=== PATIENT | male | born 1975 | race Caucasian/White ===

== ENCOUNTER 2020-06-16 00:36 | Inpatient (IN) | payer BC ==
[2020-06-16] VITALS (8 sets, daily range): BP systolic 126–151; BP diastolic 80–95
[~2020-06-16] VITALS: Ht 185.4 cm; Wt 151.5 kg
[2020-06-16 01:29] LABS: HEMATOCRIT. 37.1 % (42.0-52.0); HEMOGLOBIN. 12.1 g/dL (14.0-18.0); LYMPHOCYTES % 17.7 % (20.0-50.0); MEAN CORPUSCULAR HEMOGLOBIN 30.6 pg (28.0-32.0); MEAN CORPUSCULAR VOLUME 93.5 fL (80.0-94.0); MEAN PLATELET VOLUME 9.9 fl (7.4-10.4); MONOCYTES % 9.1 % (2.0-8.0); NEUTROPHILS % 71.2 % (40.0-76.0); PLATELET 183 x1000/uL (130-400); RED BLOOD CELL COUNT 3.96 mill/uL (4.7-6.1); RED CELL DISTRIBUTION WIDTH 18.7 % (11.6-14.6)
[2020-06-16 01:30] LABS: CHLORIDE 98 mEq/L (98-107)
[2020-06-16] MEDS ORDERED: ACETAMINOPHEN 325MG TABLET PO PRN (11:00)
[2020-06-16] MEDS ORDERED: SUMATRIPTAN SUCCINATE 25MG TABLET PO PRN (11:00)
[2020-06-16] MEDS ORDERED: SENNOSIDES/DOCUSATE SOD 8.6/50MG TABLET PO PRN (11:00)
[2020-06-16] MEDS ORDERED: DOCUSATE SODIUM 250MG CAPSULE PO PRN (11:00)
[2020-06-16] MEDS ORDERED: HYDROCODONE/ACETAMINOPHEN 5/325MG TABLET PO PRN ×2 (11:00→17:00)
[2020-06-16] MEDS ORDERED: TEMAZEPAM 15MG CAPSULE PO PRN ×2 (11:00→21:00)
[2020-06-16] MEDS ORDERED: DEXTROSE 50% WATER 50ML SYRINGE IV PRN (11:45)
[2020-06-16] MEDS ORDERED: ENOXAPARIN 150MG/ML SYR SUBCUT SCH (12:00)
[2020-06-16] MEDS: INSULIN LISPRO 100 UNITS/ML SUBCUT SCH ×5 (12:30→21:00)
[2020-06-16] MEDS ORDERED: CYCLOBENZAPRINE 10MG TABLET PO SCH (13:00)
[2020-06-16] MEDS: METHIMAZOLE 5MG TABLET PO SCH ×2 (13:24→21:34)
[2020-06-16] MEDS: BLOOD SUGAR DIAGNOSTIC STRIP TEST SCH ×3 (13:25→21:00)
[2020-06-16] MEDS: METOCLOPRAMIDE HCL 5MG TABLET PO SCH ×3 (13:25→23:07)
[2020-06-16] MEDS ORDERED: CYCLOBENZAPRINE 10MG TABLET PO PRN (13:30)
[2020-06-16] MEDS ORDERED: ALPRAZOLAM 0.25 MG TABLET PO SCH (14:00)
[2020-06-16] MEDS ORDERED: ALPRAZOLAM 0.25 MG TABLET PO PRN (14:00)
[2020-06-16] MEDS: TIMOLOL MALEATE 0.25% OPHTH DROPS 5ML EACHEYE SCH (17:00)
[2020-06-16] MEDS: LOSARTAN POTASSIUM 25 MG TABLET PO SCH (18:44)
[2020-06-16] MEDS: DIVALPROEX SODIUM 250MG DR TABLET PO SCH (18:44)
[2020-06-16] MEDS ORDERED: TIMO5DRO27 BOTHEYE (20:24)
[2020-06-16] MEDS ORDERED: DIVA-73 MT (20:24)
[2020-06-16] MEDS ORDERED: ALPR-392 PO (20:24)
[2020-06-16] MEDS ORDERED: METO5TAB86 PO (20:24)
[2020-06-16] MEDS ORDERED: SENN-257 MT (20:24)
[2020-06-16] MEDS ORDERED: FOLI-43 MT (20:24)
[2020-06-16] MEDS ORDERED: ATOR-2 PO (20:24)
[2020-06-16] MEDS ORDERED: CYCL25PO21 MT (20:24)
[2020-06-16] MEDS ORDERED: DOCU250C69 MT (20:24)
[2020-06-16] MEDS ORDERED: CYAN50003 PO (20:24)
[2020-06-16] MEDS ORDERED: HYDR-4346 MT (20:24)
[2020-06-16] MEDS: ATORVASTATIN CALCIUM 40MG TABLET PO SCH (21:34)
[2020-06-16] MEDS: ALPRAZOLAM 0.25 MG TABLET PO PRN (22:51)
[2020-06-17] VITALS (13 sets, daily range): BP systolic 101–138; BP diastolic 65–89
[2020-06-17 05:36] LABS: INR 1.2; PROTHROMBIN TIME 12.6 sec (9.6-11.0)
[2020-06-17] MEDS: METOCLOPRAMIDE HCL 5MG TABLET PO SCH ×4 (06:09→23:59)
[2020-06-17] MEDS: METHIMAZOLE 5MG TABLET PO SCH ×3 (06:09→21:59)
[2020-06-17 06:23] LABS: VITAMIN B12 SERUM 510 pg/mL (211-911)
[2020-06-17] MEDS: BLOOD SUGAR DIAGNOSTIC STRIP TEST SCH ×4 (07:30→20:26)
[2020-06-17] MEDS: INSULIN LISPRO 100 UNITS/ML SUBCUT SCH ×7 (08:00→20:26)
[2020-06-17] MEDS: LOSARTAN POTASSIUM 25 MG TABLET PO SCH ×2 (09:00→17:00)
[2020-06-17] MEDS: TIMOLOL MALEATE 0.25% OPHTH DROPS 5ML EACHEYE SCH ×2 (09:05→17:11)
[2020-06-17] MEDS: FOLIC ACID 1MG TABLET PO SCH (09:06)
[2020-06-17] MEDS: CYCLOBENZAPRINE 10MG TABLET PO PRN ×2 (09:07→21:59)
[2020-06-17] MEDS: CYANOCOBALAMIN 1000MCG/ML VIAL IM SCH (09:07)
[2020-06-17] MEDS: ALPRAZOLAM 0.25 MG TABLET PO PRN (09:10)
[2020-06-17] MEDS: ENOXAPARIN 40MG/0.4ML SYR SUBCUT SCH ×2 (09:19→22:01)
[2020-06-17] MEDS: DIVALPROEX SODIUM 250MG DR TABLET PO SCH ×2 (09:19→17:11)
[2020-06-17] MEDS: SUMATRIPTAN SUCCINATE 25MG TABLET PO PRN (12:41)
[2020-06-17] MEDS: ATORVASTATIN CALCIUM 40MG TABLET PO SCH (21:59)
[2020-06-18] VITALS (10 sets, daily range): BP systolic 109–144; BP diastolic 63–97
[2020-06-18] MEDS: ALPRAZOLAM 0.25 MG TABLET PO PRN ×2 (00:43→08:59)
[2020-06-18] MEDS: METOCLOPRAMIDE HCL 5MG TABLET PO SCH ×2 (06:00→12:00)
[2020-06-18] MEDS: METHIMAZOLE 5MG TABLET PO SCH (06:00)
[2020-06-18] MEDS: BLOOD SUGAR DIAGNOSTIC STRIP TEST SCH ×2 (07:30→13:04)
[2020-06-18] MEDS: INSULIN LISPRO 100 UNITS/ML SUBCUT SCH ×4 (08:00→13:00)
[2020-06-18] MEDS: SUMATRIPTAN SUCCINATE 25MG TABLET PO PRN (08:58)
[2020-06-18] MEDS: TIMOLOL MALEATE 0.25% OPHTH DROPS 5ML EACHEYE SCH (08:58)
[2020-06-18] MEDS: LOSARTAN POTASSIUM 25 MG TABLET PO SCH (08:59)
[2020-06-18] MEDS: ENOXAPARIN 40MG/0.4ML SYR SUBCUT SCH (08:59)
[2020-06-18] MEDS: DIVALPROEX SODIUM 250MG DR TABLET PO SCH (08:59)
[2020-06-18] MEDS: CYANOCOBALAMIN 1000MCG/ML VIAL IM SCH (09:00)
[2020-06-18] MEDS: FOLIC ACID 1MG TABLET PO SCH (09:00)
== END 2020-06-18 15:20 | DRG 52 ==
LOC: ER 00:36 → 5EST 03:52 → ENRESERV 07:12 → 5EST 09:44
PROVIDERS: ADMIT Internal Medicine; ATTEND Internal Medicine
DX: G82.50 Quadriplegia, unspecified (principal); Z68.42 Body mass index [BMI] 45.0-49.9, adult; E05.90 Thyrotoxicosis, unspecified without thyrotoxic crisis or storm; E11.9 Type 2 diabetes mellitus without complications; E66.01 Morbid (severe) obesity due to excess calories; I11.0 Hypertensive heart disease with heart failure; I50.9 Heart failure, unspecified; Z74.01 Bed confinement status; Z87.891 Personal history of nicotine dependence; Z88.8 Allergy status to other drugs, medicaments and biological substances; Z91.018 Allergy to other foods; Z91.013 Allergy to seafood
CPT/HCPCS: 36415; 71045; 80053; 82607; 82962; 83036; 83880; 84484; 85025; 93005; 95816; 99291; A6261; J1650; J1815; J3420; J8597